=== PATIENT | male | born 1990 | race Caucasian/White ===

== ENCOUNTER 2020-07-24 18:56 | Emergency (ER) | payer SELFPAY ==
--- NOTE | 2020-07-24 19:03 | ED.VIS.GEN ---
History of Present Illness Chief Complaint: CPR Informant: [employer] Officer Narrative: Patient was found unresponsive by his after apparently strangling himself in his barn. The patient told his that he was going out to the barn around 1730. Paramedics state that the call came to them around 1814 after his went to the barn and found him, and called 911. Downtime prior to her finding him is unknown, but as above as much as 45 minutes. Paramedics state that upon their initial evaluation, he had a ligature around his neck, but the had already removed what ever he had used to do it, and they state that he did not hang himself but rather sat in a chair and used the rope or what ever he used to strangle himself while sitting there. They arrived between 10 and 12 minutes after the call went out, there was no bystander CPR being performed. Initially they saw ventricular fibrillation, they defibrillated him into asystole and continued CPR, eventually replacing manual CPR with a Davion device. They gave 1 amp of sodium bicarb and 4 doses of epinephrine 1 mg. They placed an i-gel for airway and there was blood emanating from the airway throughout their transport. Paramedics relay that the told them he has been depressed and going through a lot lately. Past Medical History Past Medical History: - - unk Lives: With Family Review of Systems ROS: Unable to Obtain Physical Exam General: Well nourished, Well developed, - - obtunded Head: Normocephalic, Atraumatic Eyes: - - Pupils fixed, dilated, NR. Bilateral conjunctival hemorrhages are present. ENT: - - blood present in Neck: Supple, - - strangulation reyes around neck at the level of the cricoid/hyoid area; no palpable crepitance or deformity Cardiovascular: - - no heart sounds, no pulses without CPR. excellent pulses with CPR. Respiratory: - - Equal breath sounds are bilaterally with bagging via i-gel, which is full of blood. no spontaneous respirations. Abdomen: Soft, Nondistended Extremities: - - pallorous and cold, flaccid x 4 Skin: Pallor, Trauma - Ligature around neck appears relatively wide consistent with a rope or similar, no break in the skin externally Neurological: - - obtunded Diagnostic/Tx/Re-eval - Medical Decision Making With assistance respiratory suction blood from the airway and continued bagging. Breath sounds were heard equally bilaterally with bagging. We continued CPR and I supervised ACLS. At a rhythm check, the patient is in asystole. We continued CPR until ultrasound machine at the bedside was up and running. We then paused CPR. Patient is in asystole, there are no spontaneous pulses, no spontaneous breathing, and on cardiac ultrasound multiple views, there is no cardiac motion. This was not thought to be limited since the patient is thin. Therefore, we stopped resuscitation efforts as further efforts were thought to be futile, and the patient was declared at 1855. [employer] contacted and present to evaluate the patient. - Critical Care Time Critical care time (excluding procedures): 30-74 minutes - 35 min, Including time spent:, Discussing w/Patient &/or Family/Property Adjuster, Performing Direct Patient Care at Bedside ED Disposition - Plan for ED Patient: Disposition: Diagnosis: Cardiopulmonary arrest, Strangulation or suffocation by means, undetermined whether accidentally or purposely inflicted
[2020-07-24 19:11] VITALS: TEMP -17.7; TEMP 0; BMI 28.8
--- NOTE | 2020-07-24 20:29 | CM.ED ---
Social Work Responding to [employer]. Patient spouse, Gricelda and patient parents, Urban and Ada arriving to the emergency room. Dr. Martinez updated family that patient has . Family is not wanting to see patient. Family voiced [facility] in [facility] as choice of home. Family friend, Jah Jara providing phone number for contact if needed from medical team as patient is [employer] and family do not have phones. Jah's number: [phone]. Family agreeable to medical team contacting Jah. Active listening and support provided throughout time in the ED. Jah provided transportation to home for family. Medical team updated on above. Jimmy Porter MSW, [facility]
== END 2020-07-24 21:05 ==
PROVIDERS: Emergency Provider Emergency Medicine
DX: I46.9 Cardiac arrest, cause unspecified (principal); T71.164A Asphyxiation due to hanging, undetermined, initial encounter; Y93.89 Activity, other specified; Y92.71 Barn as the place of occurrence of the external cause; Y99.8 Other external cause status
CPT/HCPCS: 92950; 99282